=== PATIENT | male | born 1960 | race Hispanic/Latino ===

== ENCOUNTER 2017-10-07 19:11 | Emergency (ER) | payer BC, OTHER ==
[2017-10-07 19:45] VITALS: TEMP 98.2
[2017-10-07 20:23] LABS: BASO % 0.3 % (0.0-2.0); HEMOGLOBIN 14.4 g/dL (12.0-18.0); LYMPH # 2.5 K/uL (1.0-4.3); LYMPH % 17.6 % (20.0-40.0); MEAN CELL VOLUME 86.9 fL (80.0-94.0); MEAN CORPUSCULAR HEMOGLOBIN 30.6 pg (27.0-31.0); MEAN CORPUSCULAR HGB CONC 35.2 g/dL (33.0-37.0); MEAN PLATELET VOLUME 7.6 fL (7.2-11.7); MONO # 0.7 K/uL (0.0-0.8); NEUT # 11.1 K/uL (1.8-7.0); NEUT % 77.1 % (50.0-75.0); NRBC % 0.1 % (0.0-2.0); RBC 4.72 Mil/uL (4.40-5.90); RED CELL DISTRIBUTION WIDTH 13.4 % (11.5-14.5); WHITE BLOOD COUNT 14.4 K/uL (4.8-10.8)
--- NOTE | 2017-10-07 20:26 | C.PDOC ---
History Of Present Illness 57 year old male presents to the ED for evaluation of shortness of breath. Patient states he began drinking heavily in June 2017. After his mother in August 2017, his alcohol intake increased. 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 Patient reports the symptoms made him feel like dry heaving. When he went out for lunch at 1000, patient had a beer and noticed his stomach discomfort and dry heaving continued. Patient then began feeling some shortness of breath. Patient then went home and continued to feel weak. His commercial construction superintendent noticed patient look unwell and found his blood pressure to be high. Patient states he tried to drink another beer, but was unable to do so because of his abdominal discomfort. Patient denies fever, chills. Time Seen by Provider: 10/07/17 19:30 Chief Complaint (Nursing): Shortness Of Breath History Per: Patient History/Exam Limitations: no limitations Onset/Duration Of Symptoms: Hrs Current Symptoms Are (Timing): Still Present Quality: denies: "Pain" Current Respiratory Medications: See Home Med List Associated Symptoms: denies: Fever, Chills Additional History Per: Patient Past Medical History Reviewed: Historical Data, Nursing Documentation, Vital Signs Vital Signs: Last Vital Signs Temp 98.2 F 10/07/17 19:43 Pulse 84 10/07/17 19:43 Resp 18 10/07/17 20:44 BP 138/94 H 10/07/17 19:43 Pulse Ox 94 L 10/07/17 20:30 - Medical History PMH: HTN, Hypercholesterolemia Surgical History: No Surg Hx Family History: States: Unknown Family Hx - Social History Hx Tobacco Use: Yes Hx Alcohol Use: Yes Hx Substance Use: No - Immunization History Hx Tetanus Toxoid Vaccination: No Hx Influenza Vaccination: No Hx Pneumococcal Vaccination: No Review Of Systems Constitutional: Positive for: Weakness. Negative for: Fever, Chills Respiratory: Positive for: Shortness of Breath Gastrointestinal: Positive for: Abdominal Pain, Other (dry heaving ) Physical Exam - Physical Exam Appears: Non-toxic, No Acute Distress Skin: Normal Color, Warm, Dry Head: Atraumatic, Normacephalic Eye(s): bilateral: Normal Inspection Oral Mucosa: Moist Neck: Supple Chest: Symmetrical, No Deformity, No Tenderness Cardiovascular: Rhythm Regular, No Murmur Respiratory: Normal Breath Sounds, No Rales, No Rhonchi, No Wheezing Gastrointestinal/Abdominal: Soft, No Tenderness, No Guarding, No Rebound Extremity: Normal ROM, Capillary Refill (less than 2 seconds ) Neurological/Psych: Oriented x3, Normal Speech, Normal Cognition ED Course And Treatment - Laboratory Results Result Diagrams: 10/07/17 20:08 10/07/17 20:08 Lab Interpretation: No Acute Changes ECG: Interpreted By Me ECG Rhythm: Sinus Rhythm ECG Interpretation: Normal O2 Sat by Pulse Oximetry: 94 Pulse Ox Interpretation: Normal - Radiology CXR: Interpreted by Me CXR Interpretation: Yes: No Acute Disease Progress Note: Bloodwork, CXR, and EKG ordered and reviewed. Reevaluation Time: 20:58 Reassessment Condition: Improved (Patient remains comfortable and in no distress. Abdomen remains soft. He is not showing any signs of withdrawal.) Disposition Counseled Patient/Family Regarding: Studies Performed, Diagnosis, Need For Followup - Disposition Referrals: [facility] [Outside] Disposition: HOME/ ROUTINE Disposition Time: 20:59 Condition: STABLE Additional Instructions: Encourage fluids and rest. Try to decrease your daily alcohol intake. Instructions: Acid Reflux (Gastroesophageal Reflux Disease) in Adults, Effects of Alcohol on Your Health Forms: [facility] (Occitan) - Clinical Impression Clinical Impression: Alcohol abuse, Acid reflux - Scribe Statement The provider has reviewed the documentation as recorded by the Scribe (Simran Caldwell) Provider Attestation: All medical record entries made by the Scribe were at my direction and personally dictated by me. I have reviewed the chart and agree that the record accurately reflects my personal performance of the history, physical exam, medical decision making, and the department course for this patient. I have also personally directed, reviewed, and agree with the discharge instructions and disposition.
[2017-10-07 20:38] LABS: ALB/GLOB RATIO 1.3 (1.0-2.1); ALBUMIN 4.6 g/dL (3.5-5.0); ALT/SGPT 79 U/L (21-72); AST/SGOT 63 U/L (17-59); BLOOD UREA NITROGEN 10 mg/dL (9-20); CALCIUM 9.8 mg/dl (8.6-10.4); GFR AFRICAN-AMERICAN > 60; GFR NON-AFRICAN AMERICAN > 60
[2017-10-07 20:47] VITALS: RESP 18
[2017-10-07 21:29] VITALS: BP 142/74; PULSE 92; O2SAT 96
--- NOTE | 2017-10-08 09:34 | RAD ---
Chest x-ray single frontal view History: Chest pain. Comparison: 10/31/2015 Findings: No focal infiltrate or effusion. Heart size within normal limits. Osseous structures are preserved. Impression: No focal infiltrate or effusion.
--- NOTE | 2017-10-08 14:00 | CARD ---
APPROVED REPORT EKG Measurement Heart [id number] IN [id number] [id number] <Conclusion> Normal sinus rhythm Normal ECG
== END 2017-10-07 21:22 | disposition home or self-care (01) ==
LOC: C.ER 19:11
DX: K21.9 Gastro-esophageal reflux disease without esophagitis (principal); F10.10 Alcohol abuse, uncomplicated; E78.00 Pure hypercholesterolemia, unspecified; I10 Essential (primary) hypertension; Z72.0 Tobacco use
CPT/HCPCS: 71045; 80053; 84484; 85025; 93005; 99285; G0480

== ENCOUNTER 2018-01-10 20:14 | Emergency (ER) | payer BC ==
[2018-01-10 21:36] LABS: URINE BACTERIA RARE (<OCC); URINE BILIRUBIN NEGATIVE (NEGATIVE); URINE BLOOD NEGATIVE (NEGATIVE); URINE CLARITY Clear (Clear); URINE COLOR Colorless (YELLOW); URINE GLUCOSE (UA) NORMAL (Normal); URINE LEUKOCYTE ESTERASE NEG Leu/uL (Negative); URINE PROTEIN NEGATIVE (NEGATIVE); URINE UROBILINOGEN NORMAL mg/dL (0.2-1.0)
[2018-01-10 21:37] LABS: BASO # 0.1 K/uL (0.0-0.2); BASO % 0.8 % (0.0-2.0); EOS # 0.1 K/uL (0.0-0.7); EOS % 0.5 % (0.0-4.0); LYMPH # 9.8 K/uL (1.0-4.3); LYMPH % 61.2 % (20.0-40.0); MEAN CELL VOLUME 86.4 fL (80.0-94.0); MEAN CORPUSCULAR HEMOGLOBIN 30.5 pg (27.0-31.0); MEAN CORPUSCULAR HGB CONC 35.3 g/dL (33.0-37.0); MEAN PLATELET VOLUME 7.4 fL (7.2-11.7); MONO # 0.5 K/uL (0.0-0.8); MONO % 3.3 % (0.0-10.0); NEUT # 5.5 K/uL (1.8-7.0); NEUT % 34.2 % (50.0-75.0); NRBC % 0.1 % (0.0-2.0); PLATELET COUNT 245 K/uL (130-400); RBC 4.58 Mil/uL (4.40-5.90); RED CELL DISTRIBUTION WIDTH 12.8 % (11.5-14.5)
[2018-01-10 21:48] LABS: ALB/GLOB RATIO 1.5 (1.0-2.1); ALBUMIN 4.8 g/dL (3.5-5.0); ALT/SGPT 34 U/L (21-72); AST/SGOT 33 U/L (17-59); BLOOD UREA NITROGEN 13 mg/dL (9-20); CALCIUM 9.3 mg/dl (8.6-10.4); GFR NON-AFRICAN AMERICAN > 60
[2018-01-10 21:49] LABS: BARBITURATES, UR NEGATIVE (NEGATIVE); BENZODIAZEPINES, UR NEGATIVE (NEGATIVE); OPIATES, UR NEGATIVE (NEGATIVE); PHENCYCLIDINE, UR NEGATIVE (NEGATIVE)
--- NOTE | 2018-01-10 22:09 | C.PDOC ---
History Of Present Illness <Marvin North - Last Filed: 01/11/18 00:03> <ManuelniniTamara - Last Filed: 01/11/18 04:40> 57-year-old male presents to the ED for evaluation of alcohol intoxication. Patient states he fell onto his face and has sustained multiple abrasions to his face. He reports mild epistaxis, which has now resolved. He denies LOC, nausea, vomiting. (Marvin North) - HPI History Per: Patient History/Exam Limitations: no limitations Onset/Duration Of Symptoms: Hrs Injury Occurred (Timing): Just Before Arrival Additional History Per: Patient <Marvin North - Last Filed: 01/11/18 00:03> <Tamara Julian - Last Filed: 01/11/18 04:40> - HPI Time Seen by Provider: 01/10/18 20:55 Chief Complaint (Nursing): Trauma Past Medical History Reviewed: Historical Data, Nursing Documentation, Vital Signs - Medical History PMH: HTN, Hypercholesterolemia Surgical History: No Surg Hx Family History: States: Unknown Family Hx - Social History Hx Tobacco Use: Yes Hx Alcohol Use: Yes Hx Substance Use: No - Immunization History Hx Tetanus Toxoid Vaccination: No Hx Influenza Vaccination: No Hx Pneumococcal Vaccination: No <Marvin North - Last Filed: 01/11/18 00:03> Vital Signs: Last Vital Signs Temp 98.3 F 01/10/18 20:36 Pulse 81 01/11/18 03:16 Resp 20 01/11/18 03:16 BP 104/57 L 01/11/18 03:16 Pulse Ox 99 01/11/18 03:16 Review Of Systems Gastrointestinal: Negative for: Nausea, Vomiting Skin: Positive for: Other (multiple abrasions to face s/p fall ) Neurological: Negative for: Other (LOC ) Psych: Positive for: Other (alcohol intoxication ) <Marvin North - Last Filed: 01/11/18 00:03> Physical Exam - Physical Exam Appears: Non-toxic, No Acute Distress Skin: Normal Color, Warm, Dry Head: Other (multiple abrasions to facial area. no active bleeding ) Eye(s): bilateral: Normal Inspection Oral Mucosa: Moist, Other (alcohol on breath ) Neck: Supple Chest: Symmetrical, No Deformity, No Tenderness Cardiovascular: Rhythm Regular, No Murmur Respiratory: Normal Breath Sounds, No Rales, No Rhonchi, No Wheezing Extremity: Normal ROM, Capillary Refill (less than 2 seconds ) Neurological/Psych: Other (ataxia) <Marvin North - Last Filed: 01/11/18 00:03> ED Course And Treatment - Laboratory Results Result Diagrams: 01/10/18 21:28 01/10/18 21:28 O2 Sat by Pulse Oximetry: 96 (on RA) Pulse Ox Interpretation: Normal - CT Scan/US CT Head Other Rad Studies (CT/US): Read By Radiologist, Radiology Report Reviewed CT/US Interpretation: IMPRESSION: No acute intracranial findings are present. Incidental and other non-acute findings as above. Soft tissue swelling indicating posttraumatic contusion. CT Maxillofacial Other Rad Studies (CT/US): Read By Radiologist, Radiology Report Reviewed CT/US Interpretation: IMPRESSION: Nasal septal fractures seen. Mild soft tissue injury. Periodontal disease. Progress Note: Bloodwork, urinalysis, CT Head, CT Maxillofacial ordered and reviewed. Patient failed to be redirected multiple times and is severely ataxis. Patient became argumentative and confrontational with CT staff. Ativan 2mg and Geodon 20mg fiven. Patient is sleeping comfortably, will evaluate at 0100. <Marvin North - Last Filed: 01/11/18 00:03> - Laboratory Results Result Diagrams: 01/10/18 21:28 01/10/18 21:28 Pulse Ox Interpretation: Normal Reevaluation Time: 04:40 Reassessment Condition: Improved <Tamara Julian - Last Filed: 01/11/18 04:40> Medical Decision Making <Marvin North - Last Filed: 01/11/18 00:03> <Tamara Julian - Last Filed: 01/11/18 04:40> Medical Decision Making: alcohol intox ETOH 369 H nasal septum fx sedated for safety dispo in AM (Marvin North) Disposition Doctor Will See Patient In The: Hospital Counseled Patient/Family Regarding: Studies Performed, Diagnosis - Disposition Disposition Time: 23:32 <Marvin North - Last Filed: 01/11/18 00:03> Counseled Patient/Family Regarding: Studies Performed, Diagnosis <Tamara Julian - Last Filed: 01/11/18 04:40> - Disposition Referrals: [facility] [Outside] [facility] [Outside] William Carrasquillo MD [Staff Provider] - Disposition: HOME/ ROUTINE Condition: FAIR Instructions: Contusion (DC), Minor Head Injury (DC), Nose Fracture (DC), Alcohol Abuse and Alcoholism (DC) Forms: [facility] (Gabonese) - Clinical Impression Clinical Impression: Alcohol abuse, Facial contusion, Nasal septum fracture Critical Care Time - Scribe Statement The provider has reviewed the documentation as recorded by the Scribe (Simran Caldwell) <Marvin North - Last Filed: 01/11/18 00:03> <Tamara Julian - Last Filed: 01/11/18 04:40> - Scribe Statement Provider Attestation: All medical record entries made by the Scribe were at my direction and personally dictated by me. I have reviewed the chart and agree that the record accurately reflects my personal performance of the history, physical exam, medical decision making, and the department course for this patient. I have also personally directed, reviewed, and agree with the discharge instructions and disposition. (Marvin North) Physician Patient Turnover Patient Signed Over To: Tamara Julian Handoff Comments: dispo in AM when sober <Marvin North - Last Filed: 01/11/18 00:03>
[2018-01-11] LABS: LYMPHOCYTE 66 % (20-40); MONOCYTE 2 % (0-10); NEUTROPHIL 26 % (50-75); PLATELET ESTIMATE NORMAL (NORMAL); REACTIVE LYMPHOCYTES 6 % (0-0); TOTAL CELLS COUNTED 100
[2018-01-11 05:37] VITALS: BP 110/60; PULSE 76; RESP 18; TEMP 97.5; O2SAT 97
--- NOTE | 2018-01-11 08:38 | CT ---
Date of service: 01/10/2018 PROCEDURE: CT HEAD WITHOUT CONTRAST. HISTORY: intox, fall to face COMPARISON: 10/31/2015 TECHNIQUE: Axial computed tomography images were obtained through the head/brain without intravenous contrast. Radiation dose: Total exam DLP = 995.05 mGy-cm. This CT exam was performed using one or more of the following dose reduction techniques: Automated exposure control, adjustment of the mA and/or kV according to patient size, and/or use of iterative reconstruction technique. FINDINGS: HEMORRHAGE: No intracranial hemorrhage. BRAIN: No mass effect or edema. Minimal chronic periventricular white matter ischemic change. No evidence of acute infarct. VENTRICLES: Unremarkable. No hydrocephalus. CALVARIUM: Unremarkable. PARANASAL SINUSES: Minimal chronic pansinusitis. Old nasal septal fracture. MASTOID AIR CELLS: Unremarkable as visualized. No inflammatory changes. OTHER FINDINGS: None. IMPRESSION: No intracranial hemorrhage. Minimal chronic pansinusitis. The preliminary findings for this examination were reported by [facility] at 10:25 p.m. on 01/10/2018. There is concurrence of this report with the preliminary findings.
--- NOTE | 2018-01-11 08:47 | CT ---
Date of service: 01/10/2018 PROCEDURE: CT MAXILLOFACIAL BONES WITHOUT CONTRAST HISTORY: intox, fall, face COMPARISON: None available. TECHNIQUE: Contiguous axial CT images of the maxillofacial bones were obtained. Coronal and sagittal reformats were generated. Radiation dose: Total exam DLP = 671.5 mGy-cm. This CT exam was performed using one or more of the following dose reduction techniques: Automated exposure control, adjustment of the mA and/or kV according to patient size, and/or use of iterative reconstruction technique. FINDINGS: NASAL BONES: Nasal septal fracture of indeterminate age. No nasal fracture. ORBITS: Unremarkable. PARANASAL SINUSES/ MASTOIDS: Mild chronic pansinusitis. MAXILLA: Unremarkable. MANDIBLE/ TEMPOROMANDIBULAR JOINTS: Left mandibular incisor periodontal disease with apical lucency pit SKULL BASE: Unremarkable. TEMPORAL BONES: Middle ears and mastoid grossly unremarkable. OTHER FINDINGS: Minimal right frontal scalp contusion. IMPRESSION: Nasal septal fracture, age indeterminate. No nasal fracture. Mild chronic pansinusitis. No other fracture identified. The preliminary findings for this examination were reported by [facility] at 10:32 p.m. on 01/10/2018. There is concurrence of this report with the preliminary findings.
== END 2018-01-11 07:06 | disposition home or self-care (01) ==
LOC: C.ER 20:14
DX: F10.129 Alcohol abuse with intoxication, unspecified (principal); Y90.8 Blood alcohol level of 240 mg/100 ml or more; S02.2XXA Fracture of nasal bones, initial encounter for closed fracture; S00.83XA Contusion of other part of head, initial encounter; W19.XXXA Unspecified fall, initial encounter
CPT/HCPCS: 70450; 70486; 80053; 81001; 82948; 85025; 96372; 96374; 99285; G0480; J2060; J3486